=== PATIENT | female | born 1945 | race Caucasian/White ===

== ENCOUNTER → 2016-09-27 | Outpatient (REF) | payer MEDICARE ==
[2016-09-27 20:46] LABS: ALBUMIN 3.9 GM/DL (3.2-5.2); ALBUMIN/GLOBULIN RATIO 1.11 (1.00-1.93); ALKALINE PHOSPHATASE 100 U/L (45-117); ALT/SGPT 19 U/L (12-78); ANION GAP 10 MEQ/L (8-16); AST/SGOT 19 U/L (15-37); BILIRUBIN,TOTAL 0.8 MG/DL (0.2-1.0); BLOOD UREA NITROGEN 18 MG/DL (7-18); CALCIUM LEVEL 9.1 MG/DL (8.8-10.2); CARBON DIOXIDE LEVEL 26 MEQ/L (21-32); CHLORIDE LEVEL 106 MEQ/L (98-107); CHOLESTEROL LEVEL 173 MG/DL (<200); GLOMERULAR FILTRATION RATE > 60.0 (>39); GLUCOSE, FASTING 95 MG/DL (83-110); POTASSIUM SERUM 4.2 MEQ/L (3.5-5.1); SODIUM LEVEL 142 MEQ/L (136-145); TOTAL PROTEIN 7.4 GM/DL (6.4-8.2); TRIGLYCERIDES LEVEL 145 MG/DL (<150)
== END ==
LOC: M SFHCADAM 11:28
PROVIDERS: ATTEND Physician Assistant Medical
DX: I10 Essential (primary) hypertension (principal); E78.4 Other hyperlipidemia; E03.8 Other specified hypothyroidism; M81.8 Other osteoporosis without current pathological fracture

== ENCOUNTER → 2017-10-31 | Outpatient (REF) | payer MEDICARE | LOC: M SFHCADAM 17:55 | DX: N39.0 Urinary tract infection, site not specified (principal) | CPT/HCPCS: 87086 ==

== ENCOUNTER → 2017-12-09 | Outpatient (REF) | payer OTHER ==
[2017-12-09 19:49] LABS: ALBUMIN 3.8 GM/DL (3.2-5.2); ALBUMIN/GLOBULIN RATIO 1.19 (1.00-1.93); ALKALINE PHOSPHATASE 92 U/L (45-117); ALT/SGPT 20 U/L (12-78); ANION GAP 5 MEQ/L (8-16); AST/SGOT 16 U/L (7-37); BILIRUBIN,TOTAL 1.2 MG/DL (0.2-1.0); BLOOD UREA NITROGEN 14 MG/DL (7-18); CALCIUM LEVEL 8.7 MG/DL (8.8-10.2); CARBON DIOXIDE LEVEL 29 MEQ/L (21-32); CHLORIDE LEVEL 107 MEQ/L (98-107); CHOLESTEROL LEVEL 162 MG/DL (<200); CHOLESTEROL RISK RATIO 3.375 (<5); CREATININE FOR GFR 0.93 MG/DL (0.55-1.30); GLOMERULAR FILTRATION RATE > 60.0 (>39); GLUCOSE, FASTING 92 MG/DL (70-100); HDL CHOLESTEROL 48 MG/DL (>40); NON-HDL-C 114 MG/DL; POTASSIUM SERUM 4.3 MEQ/L (3.5-5.1); SODIUM LEVEL 141 MEQ/L (136-145); TRIGLYCERIDES LEVEL 130 MG/DL (<150)
[2017-12-09 20:03] LABS: BASO # 0.1 10^3/uL (0.0-0.2); BASO % 0.9 % (0.0-1.0); EOS # 0.2 10^3/uL (0.0-0.50); EOS % 2.4 % (0.0-3.0); HEMATOCRIT 37.8 % (36.0-47.0); HEMOGLOBIN 12.5 g/dl (12.0-15.5); IMMATURE GRANULOCYTE % 0.1 % (0-3.0); LYMPH # 3.5 10^3/uL (1.5-4.5); LYMPH % 45.6 % (24.0-44.0); MEAN CORPUSCULAR HEMOGLOBIN 30.8 pg (27.0-33.0); MEAN CORPUSCULAR HGB CONC 33.1 g/dl (32.0-36.5); MEAN CORPUSCULAR VOLUME 93.1 fl (80.0-96.0); MONO # 0.6 10^3/uL (0.0-0.8); MONO % 8.3 % (0.0-5.0); NEUTROPHILS # 3.3 10^3/uL (1.8-7.7); NEUTROPHILS % 42.7 % (36.0-66.0); PLATELET COUNT, AUTOMATED 288 10^3/uL (150-450); RED BLOOD COUNT 4.06 10^6/uL (4.00-5.40); RED CELL DISTRIBUTION WIDTH 13.2 % (11.5-14.5); WHITE BLOOD COUNT 7.6 10^3/uL (4.0-10.0)
== END ==
LOC: M SFHCADAM 11:36
DX: I10 Essential (primary) hypertension (principal); K21.9 Gastro-esophageal reflux disease without esophagitis; E78.4 Other hyperlipidemia
CPT/HCPCS: 84443

== ENCOUNTER → 2018-01-01 | Outpatient (REF) | payer OTHER | LOC: M SFHCADAM 15:27 | DX: J02.9 Acute pharyngitis, unspecified (principal) ==

== ENCOUNTER → 2020-09-29 | Outpatient (CLI) | payer OTHER | LOC: M LABSMTC 11:30 | PROVIDERS: ATTEND Family Medicine | DX: Z11.52 Encounter for screening for COVID-19 (principal) | CPT/HCPCS: C9803; U0003 ==

== ENCOUNTER → 2024-03-24 | Outpatient (REF) | payer MEDICARE ==
[2024-03-24 13:27] LABS: APPEARANCE, URINE CLEAR (CLEAR); BACTERIA, URINE AUTO NEGATIVE (NEGATIVE); BILIRUBIN, URINE AUTO NEGATIVE (NEGATIVE); BLOOD, URINE BLOOD NEGATIVE (NEGATIVE); COLOR, URINE YELLOW (YELLOW); GLUCOSE, URINE (UA) AUTO NEGATIVE (NEGATIVE); KETONE, URINE AUTO NEGATIVE (NEGATIVE); LEUKOCYTE ESTERASE, URINE AUTO NEGATIVE (NEGATIVE); NITRITE, URINE AUTO NEGATIVE (NEGATIVE); PROTEIN, URINE AUTO NEGATIVE (NEGATIVE); RBC, URINE AUTO 0 /HPF (0-3); SPECIFIC GRAVITY URINE AUTO 1.011 (1.002-1.035); SQUAMOUS EPITHELIAL CELL UR AU 1 /HPF (0-6); UROBILINOGEN, URINE AUTO 0.2 mg/dL (0.0-2.0); WBC, URINE AUTO 1 /HPF (0-3)
== END ==
LOC: M LAB REF 12:38
PROVIDERS: ATTEND Internal Medicine
DX: R35.0 Frequency of micturition (principal); R30.0 Dysuria

== ENCOUNTER → 2024-03-30 | Outpatient (CLI) | payer MEDICARE | LOC: M RAD 09:16 | PROVIDERS: ATTEND Internal Medicine | DX: R11.10 Vomiting, unspecified (principal); R07.82 Intercostal pain ==

== ENCOUNTER → 2024-04-29 | Outpatient (CLI) | payer MEDICARE | LOC: M WUC 14:51 | PROVIDERS: ATTEND Internal Medicine | DX: M47.814 Spondylosis without myelopathy or radiculopathy, thoracic region (principal); R07.82 Intercostal pain ==

== ENCOUNTER → 2024-09-28 | Outpatient (CLI) | payer MEDICARE | LOC: M RAD 10:09 | PROVIDERS: ATTEND Internal Medicine | DX: J34.89 Other specified disorders of nose and nasal sinuses (principal) ==

== ENCOUNTER → 2024-11-30 | Outpatient (CLI) | payer MEDICARE | LOC: M WUC 15:52 | PROVIDERS: ATTEND Nurse Practitioner Family | DX: R05.3 Chronic cough (principal) ==